=== PATIENT | female | born 1995 | race Caucasian/White ===

== ENCOUNTER 2016-05-31 19:20 | Emergency (ER) | payer OTHER, MEDICAID ==
[2016-05-31 20:33] LABS: Hematocrit 32 % (35-47); Hemoglobin 10.9 g/dl (12.0-16.0); Mean Corpuscular HGB Conc 34 g/dl (31-36); Mean Corpuscular Hemoglobin 29 pg (27-31); Mean Corpuscular Volume 83 fL (80-97); Mean Platelet Volume 8 um3 (7.4-10.4); Red Cell Distribution Width 14 % (10.5-15); White Blood Count 10.7 10^3/ul (3.5-10.8)
--- NOTE | 2016-05-31 20:33 | ED ---
Syncope/Near Syncope - HPI Summary HPI Summary: Patient presents with a complaint of feeling like she was going to pass out at work. She is 21 weeks and works as a drive in waiter/waitress. Twice at work she has felt like "her ears were full" and then she began to sweat and feel faint. This lasted for approximately 5 minutes and then passed. She was able to continue with work. She can not relate the episodes to lifting, bending or standing quickly. She feels she is well hydrated and has been eating. She denies palpitations or SOB, but does feel like her ribs and back hurt. She has not suffered any trauma and denies urinary symptoms, constipation or diarrhea. - History Of Current Complaint Chief Complaint: EDOBProblems Time Seen by Provider: 05/31/16 19:44 Hx Obtained From: Patient, Family/Splitting Machine Tender Onset/Duration: Sudden Onset, Resolved Timing: Intermittent Episode Lasting - 5 minutes Activity At Onset: Unknown Associated Head Trauma: No Aggravating Factor(s): Nothing Alleviating Factor(s): Spontaneous Resolution Associated Signs And Symptoms: Diaphoresis, Other - "ear fullness" Frequency: Episodes x___ - 2, Episodes Lasting ____ (in Mins/Days/Weeks/Years) - 5 minutes - Allergies/Home Medications Allergies/Adverse Reactions: Allergies Allergy/AdvReac Type Severity Reaction Status Date / Time Sulfamethoxazole Allergy Hives Unverified 07/13/13 16:36 w/Trimethoprim [From Bactrim] PMH/Surg Hx/FS Hx/Imm Hx Endocrine/Hematology History: Denies: Hx Diabetes, Hx Thyroid Disease Cardiovascular History: Denies: Hx Hypertension Respiratory History: Denies: Hx Asthma, Hx Chronic Obstructive Pulmonary Disease (COPD) GI History: Denies: Hx Ulcer Psychiatric History: Reports: Hx Anxiety, Hx Depression Infectious Disease History: No Infectious Disease History: Denies: Hx Hepatitis, Hx Human Immunodeficiency Virus (HIV), History Other Infectious Disease, Traveled Outside the [place] in Last 30 Days - Family History Known Family History: Positive: None - Social History Occupation: Employed Full-time Lives: With Family Alcohol Use: Weekly Substance Use Type: Reports: None Smoking Status (MU): Never Smoked Tobacco Review of Systems Negative: Fever Negative: Photophobia Negative: Sore Throat, Ear Ache Negative: Chest Pain Negative: Shortness Of Breath Negative: Abdominal Pain, Vomiting, Diarrhea Positive: no symptoms reported Negative: Decreased ROM, Edema Negative: Bruising Negative: Headache, Weakness, Paresthesia All Other Systems Reviewed And Are Negative: Yes Physical Exam Triage Information Reviewed: Yes Vital Signs On Initial Exam: Initial Vitals Temp Pulse Resp BP Pulse Ox 98.2 F 78 16 120/59 99 05/31/16 19:22 05/31/16 19:22 05/31/16 19:22 05/31/16 19:22 05/31/16 19:22 Vital Signs Reviewed: Yes Appearance: Positive: Well-Appearing, No Pain Distress - patient is alert, conversant and engaging. She denies any symptoms at this time., Well-Nourished Skin: Positive: Warm, Skin Color Reflects Adequate Perfusion, Dry, Soft Head/Face: Positive: Normal Head/Face Inspection Eyes: Positive: EOMI, CECILIA, Conjunctiva Clear ENT: Positive: Hearing grossly normal, Pharynx normal Neck: Positive: Supple, Nontender, No Lymphadenopathy Respiratory/Lung Sounds: Positive: Clear to Auscultation, Breath Sounds Present Cardiovascular: Positive: RRR Abdomen Description: Positive: Nontender, Soft. Negative: CVA Tenderness (R), CVA Tenderness (L), Distended, Guarding Bowel Sounds: Positive: Present Musculoskeletal: Positive: Strength/ROM Intact. Negative: Edema Left, Edema Right Neurological: Positive: Sensory/Motor Intact, Alert, Oriented to Person Place, Time, NV Bundle Intact Distally, Normal Gait Psychiatric: Positive: Affect/Mood Appropriate AVPU Assessment: Alert Diagnostics - Vital Signs Vital Signs Temp Pulse Resp BP Pulse Ox 05/31/16 19:22 98.2 F 78 16 120/59 99 - Laboratory Result Diagrams: 05/31/16 20:20 05/31/16 20:20 Lab Statement: Any lab studies that have been ordered have been reviewed, and results considered in the medical decision making process. - EKG No standard instances Cardiac Rate: NL EKG Rhythm: Sinus Rhythm ST Segment: Normal Ectopy: None Course/Dx - Diagnoses Differential Diagnosis/HQI/PQRI: Positive: GI Bleed, Hyperventilation, Hypoglycemia, Hypovolemia, Metabolic Reaction, Transient Ischemic Attack, Vasovagal Episode Provider Diagnoses: Near syncope Discharge - Discharge Plan Condition: Stable Disposition: HOME Patient Education Materials: Near Syncope (ED) Referrals: [facility] [place] [facility] [Outside] Additional Instructions: Please call the number provided to establish care with a regular provider for follow-up care and evaluation. Follow up with your YARD MANAGER as scheduled. Please drink extra fluids and make sure you are eating well and getting plenty of rest. Return to the emergency department if your symptoms worsen.
[2016-05-31 20:51] LABS: Albumin 3.8 g/dL (3.2-5.2); BUN/Creatinine Ratio 16.7 (8-20); C Reactive Protein 10.76 mg/L (< 5.00); Calcium 9.2 mg/dL (8.6-10.3); EGFR Non-African American 194.4 (>60); Globulin 2.9 g/dL (2-4); Potassium 3.6 mmol/L (3.5-5.0); Total Bilirubin 0.2 mg/dL (0.2-1.0); Total Protein 6.7 g/dL (6.4-8.9)
[2016-05-31 21:30] LABS: Urine Bacteria Absent (Absent); Urine Bilirubin Negative (Negative); Urine Glucose Negative (Negative); Urine Nitrite Negative (Negative)
[2016-05-31 21:33] VITALS: BP 105/76
== END 2016-05-31 21:32 | disposition home or self-care (01) ==
LOC: ED 19:20
DX: R55 Syncope and collapse (principal); Z3A.20 20 weeks gestation of pregnancy
CPT/HCPCS: 36415; 80053; 81003; 81015; 84484; 85025; 86140; 87086; 93005; 99282

== ENCOUNTER 2016-10-17 09:24 | Inpatient (IN) | payer OTHER ==
--- NOTE | 2016-10-17 09:57 | PN ---
Progress Note - Progress Note Note: G1PO MOMO 10/14/16 in prodromal labor, was evaluated last pm, was FT. Now having contractions every 5 min, has not slept. FHT: 140, mod variability, accels present. Cervix: 3cm/90%/ vtx 0 Imp: early labor Options reviewed with pt: could go home vs expectant management here vs AROM vs therapeutic rest or epidural Opts for [facility] Will admit, [facility], anticipate vaginal delivery
[2016-10-17] MEDS ORDERED: OBEPIDURAL* 250 ML ONE (14:17)
[2016-10-17 14:21] LABS: Hematocrit 33 % (35-47); Hemoglobin 10.7 g/dl (12.0-16.0); Mean Corpuscular HGB Conc 33 g/dl (31-36); Mean Corpuscular Hemoglobin 25 pg (27-31); Mean Corpuscular Volume 77 fL (80-97); Mean Platelet Volume 8 um3 (7.4-10.4); Red Blood Count 4.22 10^6/ul (4.0-5.4); Red Cell Distribution Width 15 % (10.5-15)
[2016-10-17] MEDS ORDERED: Lidocaine 1% MPF* 2 ML VIAL ONE (14:25)
[2016-10-17] MEDS ORDERED: Sodium Citrate/Citric Acid* 15 ML UDC PO PRN (15:03)
[2016-10-17] MEDS ORDERED: Famotidine TAB* 20 MG PO PRN (15:03)
[2016-10-17] MEDS ORDERED: EPHEDrine (Pressors)* 50 MG/ML VIAL IV PUSH PRN (15:03)
[2016-10-17] MEDS ORDERED: Phenylephrine IV* 40 MCG/ML 10 ML SYRINGE IV PUSH PRN ×2 (15:03)
[2016-10-17] MEDS ORDERED: OBEPIDURAL* 250 ML EPIDURAL SCH (16:00)
[2016-10-17] MEDS ORDERED: Oxytocin in LR* 20 UNITS/1,000 ML BAG IVPB ONE (19:42)
[2016-10-17] MEDS ORDERED: Oxytocin in LR* 20 UNITS/1,000 ML BAG IVPB SCH ×2 (20:00→21:24)
[2016-10-17] MEDS ORDERED: Acetaminophen TAB* 325 MG PO ONE (20:37)
[2016-10-17] MEDS ORDERED: Clindamycin 900 MG IVPREMIX(* 900 MG/50 ML SDV IV SCH (21:00)
[2016-10-17] MEDS ORDERED: Witch Hazel PAD* JAR TOPICAL PRN (21:21)
[2016-10-17] MEDS ORDERED: Glycerin ADULT SUPP PR PRN (21:21)
[2016-10-17] MEDS ORDERED: Dibucaine 1% 28.35 GM TUBE PR PRN (21:21)
[2016-10-17] MEDS ORDERED: GENTAMICIN ADULT IVPB ONE (22:00)
[2016-10-17] MEDS ORDERED: NS 0.9% IVPB ONE (22:00)
[2016-10-17] MEDS ORDERED: Clindamycin 900 MG IVPREMIX(* 900 MG/50 ML SDV IV ONE (22:00)
[2016-10-17] MEDS: Ibuprofen TAB* 600 MG PO PRN (22:15)
[2016-10-18] MEDS: Ibuprofen TAB* 600 MG PO PRN ×3 (05:13→18:25)
[2016-10-18 06:55] LABS: Hematocrit 29 % (35-47); Hemoglobin 9.4 g/dl (12.0-16.0); Mean Corpuscular HGB Conc 32 g/dl (31-36); Mean Corpuscular Hemoglobin 25 pg (27-31); Mean Corpuscular Volume 77 fL (80-97); Mean Platelet Volume 8 um3 (7.4-10.4); Red Blood Count 3.77 10^6/ul (4.0-5.4); Red Cell Distribution Width 15 % (10.5-15); White Blood Count 16.7 10^3/ul (3.5-10.8)
[2016-10-18] MEDS: Acetaminophen TAB* 325 MG PO PRN ×2 (09:15→22:29)
[2016-10-18] MEDS: Ferrous Gluconate TAB* 324 MG TAB PO SCH ×2 (09:15→20:40)
[2016-10-18] MEDS: Docusate CAP* 100 MG PO SCH ×3 (09:15→20:40)
[2016-10-19] MEDS: Ibuprofen TAB* 600 MG PO PRN ×2 (00:36→09:21)
[2016-10-19] MEDS: Ferrous Gluconate TAB* 324 MG TAB PO SCH (09:15)
[2016-10-19] MEDS: Docusate CAP* 100 MG PO SCH (09:20)
[2016-10-19 12:09] VITALS: BP 116/69
[2016-10-19] MEDS: Acetaminophen TAB* 325 MG PO PRN (13:14)
== END 2016-10-19 14:32 | disposition home or self-care (01) | DRG 774 ==
LOC: MCHOBOUT 09:24 → MCHOB 10:03
PROVIDERS: ADMIT Midwife; ATTEND Midwife
PROC: 10E0XZZ Delivery of Products of Conception, External Approach (ICD-10-PCS; principal; 2016-10-17)
PROC: 10907ZC Drainage of Amniotic Fluid, Therapeutic from Products of Conception, Via Natural or Artificial Opening (ICD-10-PCS; 2016-10-17)
PROC: 3E033VJ Introduction of Other Hormone into Peripheral Vein, Percutaneous Approach (ICD-10-PCS; 2016-10-17)
PROC: 4A1HXCZ Monitoring of Products of Conception, Cardiac Rate, External Approach (ICD-10-PCS; 2016-10-17)
DX: O48.0 Post-term pregnancy (principal); O75.2 Pyrexia during labor, not elsewhere classified; O76 Abnormality in fetal heart rate and rhythm complicating labor and delivery; O90.81 Anemia of the puerperium; Z37.0 Single live birth; Z3A.40 40 weeks gestation of pregnancy; O77.0 Labor and delivery complicated by meconium in amniotic fluid
CPT/HCPCS: 36415; 85027; 86850; 86900; 86901; A9270-GY; J0290; J1580

== ENCOUNTER 2017-08-29 18:44 | Emergency (ER) | payer OTHER ==
[2017-08-29 18:47] VITALS: BP 108/65
--- NOTE | 2017-08-29 19:31 | UC ---
Hand/Wrist HPI - HPI Summary HPI Summary: Patient caught her left fifth finger in the chain of her mcclellan ring this evening causing laceration. no bony pain or deformity, full range of motion - History Of Current Complaint Chief Complaint: UCUpperExtremity Stated Complaint: FINGER LACERATION Time Seen by Provider: 08/29/17 19:30 Hx Obtained From: Patient Hx Last Menstrual Period: one week ago ?: No Onset/Duration: Sudden Onset Severity Initially: Mild Severity Currently: Mild Pain Intensity: 1 Pain Scale Used: 0-10 Numeric Character Of Pain: Throbbing Alleviating Factor(s): Nothing Associated Signs And Symptoms: Positive: Negative Related History: Dominant Hand Right - Allergies/Home Medications Allergies/Adverse Reactions: Allergies Allergy/AdvReac Type Severity Reaction Status Date / Time sulfamethoxazole Allergy Hives Verified 08/29/17 18:48 [From Bactrim] trimethoprim [From Bactrim] Allergy Hives Verified 08/29/17 18:48 Home Medications: Home Medications NK [No Home Medications Reported] 08/29/17 [History Confirmed 08/29/17] PMH/Surg Hx/FS Hx/Imm Hx Previously Healthy: Yes - Surgical History Surgical History: None - Family History Known Family History: Positive: None - Social History Occupation: Employed Full-time Lives: With Family Alcohol Use: Occasionally Substance Use Type: None Smoking Status (MU): Never Smoked Tobacco - Immunization History Most Recent Influenza Vaccination: 03/14/2016 Most Recent Tetanus Shot: unknown Most Recent Pneumonia Vaccination: none Review of Systems Constitutional: Negative Skin: Other - U shaped avulsion medial distal left fifth finger. Approximately 1 mm date 2 mm wide 4 mm Eyes: Negative ENT: Negative Respiratory: Negative Cardiovascular: Negative Gastrointestinal: Negative Genitourinary: Negative Motor: Negative Neurovascular: Negative Musculoskeletal: Negative Neurological: Negative Psychological: Negative Is Patient Immunocompromised?: No All Other Systems Reviewed And Are Negative: Yes Physical Exam Triage Information Reviewed: Yes Appearance: Well-Appearing, No Pain Distress, Well-Nourished Vital Signs: Initial Vital Signs Temp 96.8 F 08/29/17 18:45 Pulse 65 08/29/17 18:45 Resp 12 08/29/17 18:45 BP 108/65 08/29/17 18:45 Pulse Ox 98 08/29/17 18:45 Vital Signs Reviewed: Yes Eye Exam: Normal Eyes: Positive: Conjunctiva Clear ENT Exam: Normal ENT: Positive: Normal ENT inspection, Hearing grossly normal. Negative: Trismus , Muffled voice, Hoarse voice Dental Exam: Normal Neck exam: Normal Neck: Positive: Supple, Nontender Respiratory Exam: Normal Respiratory: Positive: Chest non-tender, No respiratory distress, No accessory muscle use Cardiovascular Exam: Normal Cardiovascular: Positive: RRR, Pulses Normal, Brisk Capillary Refill Musculoskeletal Exam: Normal Musculoskeletal: Positive: Strength Intact, ROM Intact, No Edema Neurological Exam: Normal Neurological: Positive: Alert, Muscle Tone Normal Psychological Exam: Normal Skin: Positive: Other - 2 x 4 mm U-shaped skin avulsion a on her left fifth finger Hand/Wrist Course/Dx - Course Course Of Treatment: wound cleansed with 250 cc of saline under pressure, Steri- Strips applied, dressing applied, tetanus updated. Patient tolerated well wound well approximated and no bleeding - Differential Dx/Diagnosis Provider Diagnoses: Skin avulsion left fifth finger Steri-Strip repair Discharge - Sign-Out/Discharge Documenting (check all that apply): Discharge - Discharge Plan Condition: Stable Disposition: HOME Patient Education Materials: Diphtheria/Acellular Pertussis/Tetanus Booster Vaccine (By injection), Skin Avulsion (ED) Referrals: [facility] [place] [facility] [Outside] - If Needed - Billing Disposition and Condition Condition: STABLE Disposition: HOME
[2017-08-29] MEDS ORDERED: Tetan/Diph/Pertus SYR(Tdap)* 0.5 ML SYR(BOOSTRIX) use SYR IM ONE (19:35)
== END 2017-08-29 20:12 | disposition home or self-care (01) ==
LOC: UCEAST 18:44
DX: S62.607A Fracture of unspecified phalanx of left little finger, initial encounter for closed fracture (principal); W23.0XXA Caught, crushed, jammed, or pinched between moving objects, initial encounter; Y93.9 Activity, unspecified; Y92.9 Unspecified place or not applicable; Z23 Encounter for immunization; Z88.1 Allergy status to other antibiotic agents; Z88.2 Allergy status to sulfonamides
CPT/HCPCS: 12001; 90715; 99211; G0463

== ENCOUNTER 2017-09-30 07:01 | Emergency (ER) | payer OTHER ==
[2017-09-30 07:18] VITALS: BP 99/55
--- NOTE | 2017-09-30 07:30 | UC ---
Abdominal Pain Female HPI - HPI Summary HPI Summary: SUDDEN ONSET OF DIFFUSE CRAMPY ABDOMINAL PAIN AND MID BACK PAIN AROUND MIDNIGHT (7 HOURS AGO). HAS NAUSEA AND HAS VOMITED 3 TIMES. NO DIARRHEA. IS HAVING CHILLS AND SWEATS. STATES SHE FEELS LIKE A KNIFE IS IN HER BACK. NO TRAUMA. STATES ZERO CHANCE OF . DENIES URINARY SX. IS HERE WITH DAD. - History of Current Complaint Chief Complaint: UCAbdominalPain Stated Complaint: BACK PAIN Time Seen by Provider: 09/30/17 07:20 Hx Obtained From: Patient Hx Last Menstrual Period: 09/17/17 Onset/Duration: Sudden Onset, Lasting Hours, Still Present Timing: Constant Severity Initially: Moderate Severity Currently: Moderate Pain Intensity: 8 Pain Scale Used: 0-10 Numeric Location: Diffuse Radiates: Yes Radiates to: Back Character: Cramping, Sharp Aggravating Factor(s): Nothing Alleviating Factor(s): Nothing Associated Signs and Symptoms: Positive: Diaphoresis, Chest Pain, Dizzy, Back Pain, Nausea, Vomiting Allergies/Adverse Reactions: Allergies Allergy/AdvReac Type Severity Reaction Status Date / Time sulfamethoxazole Allergy Hives Verified 09/30/17 07:18 [From Bactrim] trimethoprim [From Bactrim] Allergy Hives Verified 09/30/17 07:18 PMH/Surg Hx/FS Hx/Imm Hx Previously Healthy: Yes - Surgical History Surgical History: None - Family History Known Family History: Positive: Diabetes - Social History Alcohol Use: None Substance Use Type: None Smoking Status (MU): Never Smoked Tobacco - Immunization History Most Recent Influenza Vaccination: 03/14/2016 Most Recent Tetanus Shot: unknown Most Recent Pneumonia Vaccination: none Review of Systems Constitutional: Chills ENT: Negative Respiratory: Negative Cardiovascular: Negative Gastrointestinal: Abdominal Pain, Vomiting, Nausea Genitourinary: Negative Musculoskeletal: Other: - BACK PAIN All Other Systems Reviewed And Are Negative: Yes Physical Exam Triage Information Reviewed: Yes Appearance: Well-Nourished, Ill-Appearing - APPEARS PALE, Pain Distress - MILD Vital Signs: Initial Vital Signs Temp 97.2 F 09/30/17 07:15 Pulse 55 09/30/17 07:15 Resp 16 09/30/17 07:15 BP 99/55 09/30/17 07:15 Pulse Ox 100 09/30/17 07:15 Vital Signs Reviewed: Yes Eyes: Positive: Conjunctiva Clear ENT: Positive: Hearing grossly normal, Pharynx normal, TMs normal Neck: Positive: Supple, Nontender, No Lymphadenopathy Respiratory Exam: Normal Cardiovascular: Positive: Bradycardia Abdomen Description: Positive: Soft, Other: - DIFFUSELY TTP - WORST IN EPIGASTRIC AREA. NO REBOUND.. Negative: CVA Tenderness (R), CVA Tenderness (L) , Distended Bowel Sounds: Positive: Present Musculoskeletal: Positive: No Edema Neurological: Positive: Alert Psychological: Positive: Normal Response To Family, Age Appropriate Behavior Skin: Negative: rashes Abd Pain Female Course/Dx - Course Course Of Treatment: TO [facility] [place] [place] ED BY [facility] CAR. SUSPECT ACUTE PANCREATITIS. - Differential Dx/Diagnosis Provider Diagnoses: ACUTE ABDOMINAL PAIN Discharge - Sign-Out/Discharge Documenting (check all that apply): Discharge/Admit/Transfer - Discharge Plan Condition: Stable Disposition: HOME Patient Education Materials: Abdominal Pain (ED) Referrals: No Primary Care Phys,NOPCP [Primary Care Provider] - Additional Instructions: SUSPECT ACUTE PANCREATITIS. GO DIRECTLY TO THE [facility] [place] [place] ED FROM HERE FOR FURTHER EVALUATION. CALL THE NUMBER BELOW FOR ASSISTANCE IN ESTABLISHING WITH A PCP An additional resource available to assist in finding the appropriate physician for your health care needs is the [facility] ([facility]). You may contact them by calling [phone]. - Billing Disposition and Condition Condition: STABLE Disposition: HOME
== END 2017-09-30 07:38 | disposition home or self-care (01) ==
LOC: UCEAST 07:01
DX: R10.84 Generalized abdominal pain (principal); R10.13 Epigastric pain; R61 Generalized hyperhidrosis; R07.89 Other chest pain; R42 Dizziness and giddiness; R11.0 Nausea; M54.9 Dorsalgia, unspecified; Z88.2 Allergy status to sulfonamides
CPT/HCPCS: 99211; G0463

== ENCOUNTER 2017-09-30 07:57 | Emergency (ER) | payer OTHER, MEDICAID ==
[2017-09-30] MEDS ORDERED: Ondansetron INJ* 2 MG/ML VIAL IV ONE (08:45)
[2017-09-30] MEDS ORDERED: NS 0.9% 1000 ML* 1,000 ML IV ONE (08:45)
[2017-09-30] MEDS ORDERED: Morphine INJ* 10 MG/ML 1 ML CARPUJECT IV ONE (08:45)
[2017-09-30] MEDS ORDERED: Morphine VIAL* 4 MG/ML VIAL (1 ml vial) IV ONE (08:53)
[2017-09-30] MEDS ORDERED: Ondansetron ODT TAB* 4 MG ONE (08:53)
[2017-09-30 09:01] LABS: ABS Basophils 0 10^3/ul (0-0.2); ABS Eosinophils 0 10^3/ul (0-0.6); ABS Monocytes 0.4 10^3/ul (0-0.8); ABS Neutrophils 9.1 10^3/ul (1.5-7.7); ABS Nucleated RBC 0 10^3/ul; Eosinophil % 0 % (0-6); Hematocrit 37 % (35-47); Hemoglobin 12.4 g/dl (12.0-16.0); Lymphocyte % 9.2 % (25-47); Mean Corpuscular HGB Conc 34 g/dl (31-36); Mean Corpuscular Hemoglobin 27 pg (27-31); Mean Corpuscular Volume 82 fL (80-97); Mean Platelet Volume 7.7 um3 (7.4-10.4); Nucleated Red Blood Cells % 0; Platelet Count 264 10^3/ul (150-450); Red Blood Count 4.53 10^6/ul (4.0-5.4); Red Cell Distribution Width 15 % (10.5-15); White Blood Count 10.4 10^3/ul (3.5-10.8)
[2017-09-30] MEDS ORDERED: Ondansetron ODT TAB* 4 MG PO ONE (09:02)
[2017-09-30 09:17] LABS: EGFR Non-African American 126.2 (>60)
[2017-09-30 09:26] LABS: Urine Appearance Cloudy; Urine Blood Negative (Negative); Urine Color Yellow; Urine Ketones Negative (Negative); Urine Protein 1+(30 mg/dL) (Negative); Urine Specific Gravity 1.033 (1.010-1.030); Urine Urobilinogen Negative (Negative)
[2017-09-30] MEDS ORDERED: Iohexol 300* (CONTRAST) 10 ML SDV IV ONE (09:26)
--- NOTE | 2017-09-30 11:19 | RAD ---
Indication: Abdominal pain. Contrast: Administered 100.1 ml of OMNIPAQUE 300 mg/ml CT of the abdomen and pelvis was performed after oral and IV contrast administration. Coronal and sagittal reconstructed images were obtained. Lung bases demonstrate no pleural fluid, nodules or masses. Heart is of normal size without evidence of pericardial effusion. The liver is normal in size. No focal lesions or intrahepatic duct dilatation is noted. The spleen is normal in size. The pancreas demonstrates prominent pancreas with suggestion of some small pancreatic calcifications likely due to prior pancreatitis. No definite peripancreatic fluid is noted at the current time. Common duct is not dilated. The gallbladder demonstrates no calcified gallstones. No adrenal lesions are noted. The kidneys demonstrate symmetric nephrograms. No retroperitoneal lymphadenopathy is noted. No dilated loops of bowel are noted. CT of the pelvis demonstrates uterus to be myomatous. Intrauterine device is in place. Likely follicular cyst is noted in the left ovary. Trace amount of free fluid is noted in the cul-de-sac. Colon is filled with stool. IMPRESSION: Enlarged pancreas with tiny calcifications suggestive of chronic pancreatitis. No definite peripancreatic fluid is noted currently. There may be a small amount of free fluid in the cul-de-sac with follicular cyst in the left ovary.
[2017-09-30 12:16] VITALS: BP 108/55
--- NOTE | 2017-10-01 13:23 | ED ---
Artemio Andrade Jennifer, scribed for Marshall Brock MD on 09/30/17 at 0830 . Abdominal Pain/Female - HPI Summary HPI Summary: The patient is a 22 year old female who comes from [facility] to rule out pancreatitis. The patient complains of abdominal pain and back pain right on my spine since 00:00. She rates the pain 9/10 and states the pain worsens with lying down. She adds that she recently had her Mirena changed. The patient additionally complains of vomiting three times last night and once on the way here in EMS. She denies incontinence, dysuria, and diarrhea. - History of Current Complaint Chief Complaint: EDAbdPain Stated Complaint: ABD PAIN-SENT FROM [facility] Time Seen by Provider: 09/30/17 08:14 Hx Obtained From: Patient Hx Last Menstrual Period: 09/17/17 Onset/Duration: Sudden Onset, Lasting Hours - 8 hours, Still Present, Worse Since Timing: Constant Severity Initially: Severe Severity Currently: Severe Pain Intensity: 9 Pain Scale Used: 0-10 Numeric Location: Discrete At: RUQ, Epigastric Radiates: Yes Radiates to: Back - "on spine" Aggravating Factor(s): Other: - Lying down Alleviating Factor(s): Nothing Associated Signs and Symptoms: Positive: Other: - Abdominal pain, back pain, vomiting. NEGTIVE: incontinence, dysuria, diarrhea Simlar Episode/Dx as:: "Feels similar to when I was last but wasn't able to get tests" Allergies/Adverse Reactions: Allergies Allergy/AdvReac Type Severity Reaction Status Date / Time sulfamethoxazole Allergy Hives Verified 09/30/17 07:59 [From Bactrim] trimethoprim [From Bactrim] Allergy Hives Verified 09/30/17 07:59 PMH/Surg Hx/FS Hx/Imm Hx Endocrine/Hematology History: Denies: Hx Diabetes, Hx Thyroid Disease, Other Endocrine/Hematological Disorders - Blood clots Cardiovascular History: Denies: Hx Hypertension Respiratory History: Denies: Hx Asthma, Hx Chronic Obstructive Pulmonary Disease (COPD) GI History: Denies: Hx Ulcer Psychiatric History: Reports: Hx Anxiety, Hx Depression Infectious Disease History: No Infectious Disease History: Denies: Hx Hepatitis, Hx Human Immunodeficiency Virus (HIV), History Other Infectious Disease, Traveled Outside the [place] in Last 30 Days - Family History Known Family History: Positive: Diabetes - Social History Alcohol Use: None Hx Substance Use: No Substance Use Type: Reports: None Hx Tobacco Use: No Smoking Status (MU): Never Smoked Tobacco Review of Systems Positive: Abdominal Pain, Vomiting. Negative: Diarrhea Negative: dysuria, incontinence Positive: Myalgia - Back pain All Other Systems Reviewed And Are Negative: Yes Physical Exam - Summary Physical Exam Summary: GENERAL: ~Patient is a well developed and nourished F who is lying comfortable in the stretcher. ~Patient is not in any acute respiratory distress. HEAD AND FACE: Normocephalic EYES: PERRLA, EOMI x 2. EARS: Hearing grossly intact. MOUTH: Oropharynx within normal limits. NECK: Supple, trachea is midline, no adenopathy, no JVD, no carotid bruit. CHEST: Symmetric, no tenderness at palpation LUNGS: Clear to auscultation bilaterally. No wheezing or crackles. CVS: Regular rate and rhythm, S1 and S2 present, no murmurs or gallops appreciated. ABDOMEN: Soft. Tender in epigastric area and RUQ. Tenderness in thoracic spine, most likely related to epigastirc pain. Bowel sounds are normal. No abdominal abnormal pulsations. EXTREMITIES: Full ROM in all major joints, no edema, no cyanosis or clubbing. Back: No TTP along the C-T-L spine, no step-offs NEURO: Alert and oriented x 3. No acute neurological deficits. Speech is normal and follows commands. SKIN: Dry and warm Triage Information Reviewed: Yes Vital Signs On Initial Exam: Initial Vitals Temp Pulse Resp BP Pulse Ox 97.5 F 53 20 99/67 100 09/30/17 08:00 09/30/17 08:00 09/30/17 08:00 09/30/17 08:00 09/30/17 08:00 Vital Signs Reviewed: Yes Diagnostics - Vital Signs Vital Signs Temp Pulse Resp BP Pulse Ox 09/30/17 08:19 54 15 119/67 100 09/30/17 08:18 15 09/30/17 08:00 97.5 F 53 20 99/67 100 - Laboratory Lab Results: Lab Results 09/30/17 09/30/17 09/30/17 Range/Units 08:51 08:51 08:51 WBC 10.4 (3.5-10.8) 10^3/ul RBC 4.53 (4.0-5.4) 10^6/ul Hgb 12.4 (12.0-16.0) g/dl Hct 37 (35-47) % MCV 82 (80-97) fL MCH 27 (27-31) pg MCHC 34 (31-36) g/dl RDW 15 (10.5-15) % Plt Count 264 (150-450) 10^3/ul MPV 7.7 (7.4-10.4) um3 Neut % (Auto) 87.1 H (38-83) % Lymph % (Auto) 9.2 L (25-47) % [place] % (Auto) 3.4 (0-7) % Eos % (Auto) 0 (0-6) % Baso % (Auto) 0.3 (0-2) % Absolute Neuts (auto) 9.1 H (1.5-7.7) 10^3/ul Absolute Lymphs (auto) 1.0 (1.0-4.8) 10^3/ul Absolute Monos (auto) 0.4 (0-0.8) 10^3/ul Absolute Eos (auto) 0 (0-0.6) 10^3/ul Absolute Basos (auto) 0 (0-0.2) 10^3/ul Absolute Nucleated RBC 0 10^3/ul Nucleated RBC % 0 APTT 29.5 (26.0-36.3) seconds Sodium 138 L (139-145) mmol/L Potassium 4.0 (3.5-5.0) mmol/L Chloride 103 (101-111) mmol/L Carbon Dioxide 25 (22-32) mmol/L Anion Gap 10 (2-11) mmol/L BUN 12 (6-24) mg/dL Creatinine 0.60 (0.51-0.95) mg/dL Est GFR ( Amer) 162.3 (>60) Est GFR (Non-Af Amer) 126.2 (>60) BUN/Creatinine Ratio 20.0 (8-20) Glucose 123 H (70-100) mg/dL Lactic Acid (0.5-2.0) mmol/L Calcium 9.7 (8.6-10.3) mg/dL Total Bilirubin 0.90 (0.2-1.0) mg/dL AST 128 H (13-39) U/L ALT 81 H (7-52) U/L Alkaline Phosphatase 58 (34-104) U/L C-Reactive Protein 7.97 H (< 5.00) mg/L Total Protein 7.7 (6.4-8.9) g/dL Albumin 4.6 (3.2-5.2) g/dL Globulin 3.1 (2-4) g/dL Albumin/Globulin Ratio 1.5 (1-3) Lipase 19 (11.0-82.0) U/L Beta HCG, Quant < 0.60 mIU/mL Urine Color Urine Appearance Urine pH (5-9) Ur Specific [place] (1.010-1.030) Urine Protein (Negative) Urine Ketones (Negative) Urine Blood (Negative) Urine Nitrate (Negative) Urine Bilirubin (Negative) Urine Urobilinogen (Negative) Ur Leukocyte Esterase (Negative) Urine WBC (Auto) (Absent) Urine RBC (Auto) (Absent) Ur Squamous Epith Cells (Absent) Urine Bacteria (Absent) Urine Glucose (Negative) Urine Ascorbic Acid (Negative) 09/30/17 09/30/17 Range/Units 08:51 09:14 WBC (3.5-10.8) 10^3/ul RBC (4.0-5.4) 10^6/ul Hgb (12.0-16.0) g/dl Hct (35-47) % MCV (80-97) fL MCH (27-31) pg MCHC (31-36) g/dl RDW (10.5-15) % Plt Count (150-450) 10^3/ul MPV (7.4-10.4) um3 Neut % (Auto) (38-83) % Lymph % (Auto) (25-47) % [place] % (Auto) (0-7) % Eos % (Auto) (0-6) % Baso % (Auto) (0-2) % Absolute Neuts (auto) (1.5-7.7) 10^3/ul Absolute Lymphs (auto) (1.0-4.8) 10^3/ul Absolute Monos (auto) (0-0.8) 10^3/ul Absolute Eos (auto) (0-0.6) 10^3/ul Absolute Basos (auto) (0-0.2) 10^3/ul Absolute Nucleated RBC 10^3/ul Nucleated RBC % APTT (26.0-36.3) seconds Sodium (139-145) mmol/L Potassium (3.5-5.0) mmol/L Chloride (101-111) mmol/L Carbon Dioxide (22-32) mmol/L Anion Gap (2-11) mmol/L BUN (6-24) mg/dL Creatinine (0.51-0.95) mg/dL Est GFR ( Amer) (>60) Est GFR (Non-Af Amer) (>60) BUN/Creatinine Ratio (8-20) Glucose (70-100) mg/dL Lactic Acid 1.7 (0.5-2.0) mmol/L Calcium (8.6-10.3) mg/dL Total Bilirubin (0.2-1.0) mg/dL AST (13-39) U/L ALT (7-52) U/L Alkaline Phosphatase (34-104) U/L C-Reactive Protein (< 5.00) mg/L Total Protein (6.4-8.9) g/dL Albumin (3.2-5.2) g/dL Globulin (2-4) g/dL Albumin/Globulin Ratio (1-3) Lipase (11.0-82.0) U/L Beta HCG, Quant mIU/mL Urine Color Yellow Urine Appearance Cloudy Urine pH 6.0 (5-9) Ur Specific [place] 1.033 H (1.010-1.030) Urine Protein 1+(30 mg/dl) A (Negative) Urine Ketones Negative (Negative) Urine Blood Negative (Negative) Urine Nitrate Negative (Negative) Urine Bilirubin Negative (Negative) Urine Urobilinogen Negative (Negative) Ur Leukocyte Esterase Trace A (Negative) Urine WBC (Auto) Trace(0-5/hpf) (Absent) Urine RBC (Auto) Absent (Absent) Ur Squamous Epith Cells Present A (Absent) Urine Bacteria Absent (Absent) Urine Glucose Negative (Negative) Urine Ascorbic Acid * A (Negative) Result Diagrams: 09/30/17 08:51 09/30/17 08:51 Lab Statement: Any lab studies that have been ordered have been reviewed, and results considered in the medical decision making process. - CT CT Abd/Pel CT Interpretation: Positive (See Comments) - Enlarged pancreas with tiny calcifications suggestive of chronic pancreatitis. No definite peripancreatic fluid is noted currently. There may be a small amount of free fluid in the cul- de-sac with follicular cyst in the left ovary. Dr. Brock has reviewed this report. CT Interpretation Completed By: Radiologist Abdominal Pain Fem Course/Dx - Course Course Of Treatment: The patient is a 22 year old female who comes from [facility] with complaints of abdominal pain in the epigastric area and radiating right on my spine since 00:00. In the ED course the patient was given Morphine, IV fluids, and Zofran. Bloodwork and Urinalysis were obtained. CT Abd/Pel was obtained which showed finding consistent with chronic pancreatitis. I discussed the case with hospitalist who thinks the patient can be discharge home since this is chronic and her pain is control and has no active vomiting at this time. Patient is agreeable to plan and will follow up with GI.The patient is diagnosed with chronic pancreatitis. The patient is instructed to follow up with GI in 3 days. She is HD stable upon discharge - Diagnoses Provider Diagnoses: Chronic pancreatitis Discharge - Sign-Out/Discharge Documenting (check all that apply): Discharge/Admit/Transfer - Discharge Plan Condition: Stable Disposition: HOME Prescriptions: Pantoprazole Sodium [Protonix] 20 mg PO DAILY #30 tablet. Patient Education Materials: Pancreatitis (ED) Referrals: Caesar Carter MD [Medical Doctor] - Additional Instructions: Follow up with your Dr. Carter, gastroenterology, in 3 days. Return to the emergency department for any new or worsening symptoms. - Billing Disposition and Condition Condition: STABLE Disposition: HOME The documentation as recorded by the Artemio cobb Jennifer accurately reflects the service I personally performed and the decisions made by me, Marshall Brock MD.
== END 2017-09-30 14:05 | disposition home or self-care (01) ==
LOC: ED 07:57
DX: K86.1 Other chronic pancreatitis (principal); R10.9 Unspecified abdominal pain; M54.9 Dorsalgia, unspecified; R11.10 Vomiting, unspecified
CPT/HCPCS: 36415; 74177; 80053; 81003; 81015; 83605; 83690; 84702; 85025; 85730; 86140; 87086; 96374; 96375; 99284; A9270-GY; J2270; Q9967

== ENCOUNTER 2017-11-03 09:43 | Day surgery (SDC) | payer OTHER, MEDICAID ==
[~2017-11-03 09:43] MED LIST: Buffered Lidocaine 0.9% SYRIN* 5 ML/SYR SYRINGE INTRADERM ONE
[2017-11-03] MEDS ORDERED: fentaNYL* 50 MCG/ML 2 ML VIAL (100 MCG VIAL) IV PRN (10:15)
[2017-11-03] MEDS ORDERED: Ondansetron ODT TAB* 4 MG PO PRN (10:15)
[2017-11-03] MEDS ORDERED: Scopolamine 1.5 mg* PATCH TRANSDERM PRN (10:15)
[2017-11-03] MEDS ORDERED: HYDROmorphone INJ* 1 MG/ML CARPUJECT SYRINGE IV PRN (10:15)
[2017-11-03] MEDS ORDERED: Nalbuphine* 20 MG/ML 1 ML VIAL IV PRN (10:15)
[2017-11-03] MEDS ORDERED: DiMENhydriNATE IV* 50 MG/ML VIAL IV PUSH PRN (10:15)
[2017-11-03] MEDS ORDERED: PROCHLORPERAZINE INJ 5 MG/ML 2 ML VIAL IV PRN (10:15)
[2017-11-03] MEDS ORDERED: Naloxone* 0.4 MG/ML 1 ML VIAL IV PRN (10:15)
[2017-11-03] MEDS ORDERED: Acetaminophen TAB* 325 MG PO PRN (10:15)
[2017-11-03] MEDS ORDERED: HYDROcodone/ACETAMIN 5-325 MG* 1 TAB PO PRN (10:15)
[2017-11-03] MEDS ORDERED: Levalbuterol 0.63MG/3ML NEB* UNIT OF USE INH PRN (10:15)
[2017-11-03] MEDS ORDERED: Ondansetron INJ* 2 MG/ML VIAL IV PRN (10:15)
[2017-11-03] MEDS ORDERED: ceFAZolin 2 GM PREMIX (*) 2 GM/50 ML BAG IVPB ONE (10:27)
[2017-11-03] MEDS ORDERED: Midazolam* 1 MG/ML 2 ML VIAL (2 MG) ONE ×2 (10:50→11:40)
[2017-11-03] MEDS ORDERED: fentaNYL* 50 MCG/ML 2 ML VIAL (100 MCG VIAL) ONE ×2 (10:50→11:40)
[2017-11-03] MEDS ORDERED: Bupivacaine 0.25% SDV* 30 ML ONE ×2 (11:10→12:51)
[2017-11-03] MEDS ORDERED: Ketorolac INJ* 30 MG/ML 1 ML VIAL ONE (11:27)
[2017-11-03] MEDS ORDERED: Famotidine IV* 10 MG/ML 2 ML (20 mg) ONE (11:27)
[2017-11-03] MEDS ORDERED: Dexamethasone IV* 4 MG/ML 1 ML (4 MG) ONE ×2 (11:27→11:38)
[2017-11-03] MEDS ORDERED: DiMENhydriNATE IV* 50 MG/ML VIAL ONE (11:27)
[2017-11-03] MEDS ORDERED: Lidocaine 2% PF * 5 ML VIAL ONE (11:27)
[2017-11-03] MEDS ORDERED: Propofol* 10 MG/ML 20 ML BTL IV PUSH ONE (11:27)
[2017-11-03] MEDS ORDERED: Rocuronium* 10 MG/ML VIAL ONE (11:32)
[2017-11-03] MEDS ORDERED: HYDROmorphone INJ* 0.5 MG/0.5 ML SYRINGE ONE (11:42)
[2017-11-03] MEDS ORDERED: Esmolol* 10 MG/ML 10 ML (100 mg) ONE (11:44)
[2017-11-03 15:08] VITALS: BP 115/65
--- NOTE | 2017-11-04 07:25 | OP ---
DATE OF OPERATION: 11/03/17 - [facility] DATE OF : [birth year] SURGEON: Kevin Overton MD SNAILER: Gill Lr NP ANESTHESIOLOGIST: Dr. Roel Marquez ANESTHESIA: General with local. PRE-OP DIAGNOSES: 1. Right upper quadrant abdominal pain. 2. Cholelithiasis. POST-OP DIAGNOSES: 1. Right upper quadrant abdominal pain. 2. Cholelithiasis. OPERATIVE PROCEDURE: Laparoscopic cholecystectomy. ESTIMATED BLOOD LOSS: 75 cc. IV FLUIDS: 1 L of crystalloid. WOUND CLASSIFICATION: II. SPECIMEN: Gallbladder. DRAINS: None. COMPLICATIONS: There was some bleeding from the epigastric port site, which was controlled with 2-0 Vicryl fascial sutures. BRIEF HISTORY: Ms. Elijah Salgado is a 22-year-old woman who has had intermittent epigastric right upper quadrant abdominal pain on and off over the past several years. An ultrasound has confirmed gallstones. She had some mild elevation of her liver transaminase as well. She is now to undergo an elective cholecystectomy. DESCRIPTION OF PROCEDURE: Written informed consent was obtained, the abdomen was marked with indelible ink and preoperative antibiotics were administered. The patient was taken to the operating room, placed in the supine position. Sequential compression devices and a warming blanket were applied. General anesthesia was administered. A time-out verification was completed. Initially, a vertical incision was made in the inferior portion of the umbilical fold and the peritoneal cavity was entered under direct vision. A 12- mm blunt port was inserted. The abdomen was insufflated to 15 mmHg. Under direct vision, an epigastric 11 mm port and two 5-mm ports were made on the right side of the abdominal wall. Gallbladder was identified. It was without evidence of acute or chronic inflammation, but did contain obvious large gallstones. It was grasped and elevated up over the liver bed. The peritoneum along the medial and lateral aspects of the infundibular portion of the gallbladder was then taken down to expose and then dissect the cystic duct and arteries as they entered the gallbladder. The cystic duct appeared to be of normal and expected caliber. I took a considerable portion of the inferior part of the gallbladder off the liver bed using the critical view technique to assure myself of these two structures. When this was complete, the cystic duct and artery were then doubly clipped and divided. Gallbladder was removed from the liver bed with cautery without difficulty and placed in an EndoCatch bag. The liver bed was then irrigated, hemostasis was assured. The gallbladder was then removed through the umbilical port. At this point, we removed the epigastric port and two 5-mm ports under direct vision and it was noted that there was bleeding from the epigastric port site externally on to the skin, which was fairly profuse. We attempted to identify the bleeding source from externally and this was unsuccessful. Thus, the 11-mm epigastric port and two 5-mm ports were then replaced and the abdomen was once again insufflated. It was evident then that there had been some blood that had been dripping into the abdominal cavity, which had accumulated up into the liver in the right upper quadrant, this was irrigated thoroughly and I assured myself that there was no bleeding from the surgical site, which there was none, and the blood appeared to be all from the epigastric port site. There is approximately 50 to 75 cc of blood in this area. Once I had concluded that the epigastric port was the bleeding site, two separate 0 Vicryl full thickness sutures were placed through the fascia using the Endoclose needle under direct vision with the laparoscope. The epigastric port was then removed and the sutures were tightened down and we were able to visualize the inside of the port site and the bleeding had been controlled. Likewise, there was no bleeding from the external port site as there had been prior. All the remaining ports were then removed under direct vision. There is no abdominal wall bleeding. The umbilical fascia was then closed with interrupted #1 Vicryl suture. The skin at all 4 incisions were approximated with subcuticular 4-0 Vicryl suture. Steri-Strips were applied. The patient tolerated the procedure well, was taken to the recovery room in stable condition. [id number]/[facility] #: [id number] [facility]Dominik
[2017-11-06] MEDS ORDERED: Scopolamine PATCH Remove* 1 NOTE MISC PATCH OFF ONE (10:17)
== END 2017-11-03 15:23 | disposition home or self-care (01) ==
LOC: OR 09:43
PROVIDERS: ATTEND Surgery
DX: K80.10 Calculus of gallbladder with chronic cholecystitis without obstruction (principal); R10.11 Right upper quadrant pain; Z72.0 Tobacco use; F41.9 Anxiety disorder, unspecified; M54.5 Low back pain
CPT/HCPCS: 81025; 88304; J0690; J1100; J1170; J1240; J1885; J2250; J2704; J3010